=== PATIENT | female | born 1955 | race African-American/Black ===

== ENCOUNTER → 2017-01-07 | Outpatient (CLI) | payer MEDICAID, MEDICARE | LOC: RAD 07:11 | PROVIDERS: ATTEND Family Medicine | DX: R22.1 Localized swelling, mass and lump, neck (principal) | CPT/HCPCS: 76536 ==

== ENCOUNTER 2017-09-24 13:30 | Emergency (ER) | payer MEDICARE, MEDICAID ==
--- NOTE | 2017-09-24 13:48 | ER Document Report ---
ED General - General Chief Complaint: Weakness Stated Complaint: WEAKNESS,FACIAL PAIN,ELEVATED SUGAR Time Seen by Provider: 09/24/17 13:45 Notes: Patient is a 62-year-old female presents emergency department chief complaint of 4 days of high blood sugars at home. Patient states she is on Lantus only as well as Januvia and metformin. Patient states that she denies any fevers or chills, productive cough she admits to intermittent nausea without any pyuria, hematuria. Patient states that she follows with Dr. Sabillon. Otherwise admits to history of high blood pressure. Denies any chest pain. Vomiting, diarrhea, polyuria. She does admit to facial tingling 4 days ago that has gone away. States that she has had this before when her potassium is below. TRAVEL OUTSIDE OF THE [place] IN LAST 30 DAYS: No - Related Data Allergies/Adverse Reactions: amitriptyline [From Elavil] Allergy (Verified 09/24/17 13:34) cephalexin [From Keflex] Allergy (Verified 09/24/17 13:34) ciprofloxacin [From Cipro] Allergy (Verified 09/24/17 13:32) Penicillins Allergy (Verified 09/24/17 13:34) Past Medical History - Social History Smoking Status: Smoker,Current Status Unk Family History: DM, Hyperlipidemia, Hypertension, Malignancy, Thyroid Disfunction, Other - AIDS - Past Medical History Cardiac Medical History: Reports: Hx Hypercholesterolemia, Hx Hypertension Endocrine Medical History: Reports: Hx Diabetes Mellitus Type 2 GI Medical History: Reports: Hx Colonoscopy Musculoskeltal Medical History: Reports Hx Arthritis, Reports Hx Musculoskeletal Deformity, Reports Hx Musculoskeletal Trauma Psychiatric Medical History: Reports: Hx Anxiety, Hx Depression Past Surgical History: Reports: Hx Breast Surgery - breast reduction, Hx Hysterectomy, Hx Nose Surgery, Hx Orthopedic Surgery - foot - Immunizations Hx Diphtheria, Pertussis, Tetanus Vaccination: Yes Hx Pneumococcal Vaccination: 09/07/00 Review of Systems - Review of Systems Constitutional: No symptoms reported EENT: See HPI Cardiovascular: No symptoms reported Respiratory: No symptoms reported Gastrointestinal: No symptoms reported Musculoskeletal: See HPI Neurological/Psychological: No symptoms reported -: Yes All other systems reviewed and negative Physical Exam - Vital signs Vitals: Temp Pulse Resp BP Pulse Ox 98.4 F 89 18 128/79 H 98 09/24/17 13:41 09/24/17 13:41 09/24/17 13:41 09/24/17 13:41 09/24/17 13:41 - Notes Notes: PHYSICAL EXAM GENERAL: Alert, interacts well. HEAD: Normocephalic, atraumatic. EYES: Pupils equal, round, and reactive to light. Extraocular movements intact. ENT: Oral mucosa moist, tongue midline. NECK: Full range of motion. Supple. Trachea midline. LUNGS: Clear to auscultation bilaterally, no wheezes, rales, or rhonchi. No respiratory distress. HEART: Regular rate and rhythm. No murmurs, gallops, or rubs. ABDOMEN: Soft, nondistended, nontender. No guarding, rebound, or rigidity.. Bowel sounds present in all 4 quadrants. EXTREMITIES: Moves all 4 extremities spontaneously. No edema, radial and dorsalis pedis pulses 2/4 bilaterally. No cyanosis. NEUROLOGICAL: Alert and oriented x4. Normal speech. PSYCH: Normal affect, normal mood. SKIN: Warm, dry, normal turgor. No rashes or lesions noted. Course - Re-evaluation Re-evalutation: 09/24/17 17:02 Patient is a 62-year-old female is hemodynamically stable, no acute distress and afebrile. Presentation of asymptomatic hyperglycemia. There is no evidence of HHS or diabetic ketoacidosis on laboratories or based on clinical history. Patient's vitals are within normal limits. They deny any acute focal complaints. Treatment with IV fluids given here in the emergency department with appropriate response of the blood sugar. Patient does have primary care follow-up. Patient was instructed to continue taking their metformin, lantus and januvia and advised they will likely need to increase dietary modification and may also need medication changes. No evidence of CBC with leukocytosis or anemia. Chemistry stable without evidence of acute renal failure, electrolyte abnormalities. Urinalysis does show evidence of urinary tract infection with positive leukoesterase. When discussed with the patient she declines to take an antibiotic at this time and agrees to wait for culture results. Stated that this as well as dehydration could be contributing to her elevated blood sugars. Patient to follow-up with Dr. Romel huynh. Indications to return to emergency department as well as the importance of close outpatient follow-up were discussed at length. Patient verbalized understanding of the need for close follow-up and indications to return to the ED. - Vital Signs Vital signs: Temp Pulse Resp BP Pulse Ox 98.3 F 87 16 125/82 99 09/24/17 17:35 09/24/17 17:35 09/24/17 17:35 09/24/17 17:35 09/24/17 17:35 - Laboratory Result Diagrams: 09/24/17 14:08 09/24/17 14:08 Laboratory results interpreted by me: 09/24/17 09/24/17 09/24/17 13:55 14:08 14:08 Hgb 11.5 L Hct 33.7 L Sodium 135.9 L Glucose 261 H POC Glucose 284 H Calcium 10.3 H Urine Glucose (UA) Ur Leukocyte Esterase 09/24/17 09/24/17 14:25 16:38 Hgb Hct Sodium Glucose POC Glucose 198 H Calcium Urine Glucose (UA) >=500 H Ur Leukocyte Esterase MODERATE H Discharge - Discharge Clinical Impression: Diabetes mellitus Qualifiers: Diabetes mellitus type: type 2 Diabetes mellitus complication status: with hyperglycemia Diabetes mellitus alf insulin use: unspecified alf insulin use status Qualified Code(s): E11.65 - Type 2 diabetes mellitus with hyperglycemia Condition: Good Disposition: HOME, SELF-CARE Instructions: Hyperglycemia (OM) Additional Instructions: You need to followup urgently with your primary care doctor as your blood sugars were high today. You did not have any evidence of a dangerous condition associated with these blood sugars at this time. However, it is very important that you get your blood sugars under control. Please take all of your medications exactly as directed. You should avoid foods that are high in carbohydrates and sugary foods. Losing weight will also help to better control your blood sugars. Please return to emergency department immediately if you develop weakness, persistent vomiting, confusion, or any other symptoms that are concerning to you. Referrals: PARISH SABILLON MD [ACTIVE STAFF] - 09/28/17
[2017-09-24 14:24] LABS: ABSOLUTE BASOPHILS # (AUTO) 0.1 10^3/uL (0.0-0.2); ABSOLUTE EOSINOPHILS # (AUTO) 0.1 10^3/uL (0.0-0.6); ABSOLUTE LYMPHOCYTES (AUTO) 2.5 10^3/uL (0.5-4.7); ABSOLUTE MONOCYTES (AUTO) 0.6 10^3/uL (0.1-1.4); ABSOLUTE NEUT (AUTO) 3.8 10^3/uL (1.7-8.2); BASOPHILS % (AUTO) 1.1 % (0-2); EOSINOPHILS % (AUTO) 1.6 % (0-6); HEMATOCRIT 33.7 % (36.0-47.0); HEMOGLOBIN 11.5 g/dL (12.0-15.5); LYMPHOCYTES % (AUTO) 34.9 % (13-45); MEAN CORPUSCULAR HEMOGLOBIN 30.4 pg (27.0-33.4); MEAN CORPUSCULAR HGB CONC 34.2 g/dL (32.0-36.0); MEAN CORPUSCULAR VOLUME 89 fl (80-97); MONOCYTES % (AUTO) 8.2 % (3-13); PLATELET COUNT 311 10^3/uL (150-450); RED BLOOD COUNT 3.79 10^6/uL (3.72-5.28); SEGMENTED NEUTROPHILS % (AUTO) 54.2 % (42-78); TOTAL CELLS COUNTED % (AUTO) 100 %
[2017-09-24 14:25] LABS: VENOUS BLOOD BASE EXCESS 0.9 mmol/L; VENOUS BLOOD PCO2 43.7 mmHg (35-63); VENOUS BLOOD PH 7.39 (7.30-7.42)
[2017-09-24 14:37] LABS: ALANINE AMINOTRANSFERASE 21 U/L (9-52); ALBUMIN 4.3 g/dL (3.5-5.0); ALKALINE PHOSPHATASE 83 U/L (38-126); ANION GAP 11 (5-19); ASPARTATE AMINO TRANSFERASE 16 U/L (14-36); BILIRUBIN,DIRECT 0.3 mg/dL (0.0-0.4); BILIRUBIN,TOTAL 0.5 mg/dL (0.2-1.3); BLOOD UREA NITROGEN 17 mg/dL (7-20); CALCIUM 10.3 mg/dL (8.4-10.2); CARBON DIOXIDE 25 mmol/L (22-30); CHLORIDE 100 mmol/L (98-107); GLUCOSE 261 mg/dL (75-110); POTASSIUM 4.4 mmol/L (3.6-5.0); SODIUM 135.9 mmol/L (137-145)
[2017-09-24 14:56] LABS: APPEARANCE,URINE CLOUDY; BILIRUBIN,URINE NEGATIVE (NEGATIVE); COLOR,URINE YELLOW; GLUCOSE, URINE >=500 mg/dL (NEGATIVE); KETONES,URINE NEGATIVE (NEGATIVE); LEUKOCYTE ESTERASE,URINE MODERATE (NEGATIVE); NITRITE,URINE NEGATIVE (NEGATIVE); PROTEIN,URINE NEGATIVE (NEGATIVE); URINE SPECIFIC GRAVITY 1.015; UROBILINOGEN,URINE NEGATIVE mg/dL (<2.0)
[2017-09-24] MEDS ORDERED: NORMAL SALINE 1000 ML 1,000 ML IV PRN (15:12)
[2017-09-24 15:15] LABS: MAGNESIUM 1.6 mg/dL (1.6-2.3)
[2017-09-24 17:37] VITALS: BP 125/82
== END 2017-09-24 17:25 | disposition home or self-care (01) ==
LOC: ER 13:30
DX: E11.65 Type 2 diabetes mellitus with hyperglycemia (principal); R53.1 Weakness; R51 Headache; R11.0 Nausea; F17.200 Nicotine dependence, unspecified, uncomplicated
CPT/HCPCS: 99285; 96360; 36415; 87086; 82962; 83735; 85025; 80053; 81001; 82803; J7030

== ENCOUNTER → 2019-01-18 | Outpatient (CLI) | payer MEDICAID, MEDICARE ==
--- NOTE | 2019-01-18 18:56 | XCELERA REPORT ---
[address] [address] Transthoracic Echocardiogram Report Name: BLANKA STEWARD Age: 63 yrs Gender: Female : 1955 Patient Status: Outpatient Patient Location: [facility] Study Date: 01/18/2019 02:26 PM Height: 74 in Weight: 266 lb BSA: 2.5 m2 Reason For Study: MURMUR Ordering Physician: MELI OWUSU Performed By: Napoleon Mills Interpretation Summary Min post perciardial effusion Noormal calcific ao root, not enlarged. Mild sclerotic AV disease, no stenosis, mild AR with no LV enlargement. Mild mitral annular calcification, no MS, no MVP, mild MR with no LA enlargement. LV shows asymmetric LVH with post wall 15 mm and IVS 10mm, with IVS and inferoseptal wall hypokinesis, No LV enlargement. LVEF is 55% and there is stage I LV diastolic dysfunction. RH is normal Trace TR unable to sample to derive RVSP. IVC is sl enlarged. RAP estimated 8mm Hg. MMode/2D Measurements & Calculations RVDd: 3.2 cm LVIDd: 5.6 cm FS: 29.2 % Ao root diam: IVSd: 0.78 cm LVIDs: 4.0 cm EDV(Teich): 2.9 cm LVPWd: 0.76 cm 156.6 ml Ao root area: ESV(Teich): 69.9 ml 6.6 cm2 LA dimension: EF(Teich): 55.4 % 3.3 cm LVLd ap4: 8.7 cm SV(MOD-sp4): EDV(MOD-sp4): 66.0 ml 124.0 ml LVLs ap4: 7.5 cm ESV(MOD-sp4): 58.0 ml EF(MOD-sp4): 53.2 % Doppler Measurements & Calculations MV E max darell: MV P1/2t max darell: Ao V2 max: LV V1 max P.1 cm/sec 80.6 cm/sec 154.7 cm/sec 2.5 mmHg MV A max darell: MV P1/2t: 92.3 msec Ao max PG: LV V1 max: 99.1 cm/sec MVA(P1/2t): 2.4 cm2 9.6 mmHg 79.8 cm/sec MV E/A: 0.73 MV dec slope: 255.6 cm/sec2 MV dec time: 0.26 sec PA V2 max: MV P1/2t-pr_phl: 59.5 cm/sec 92.3 msec PA max P.4 mmHg Left Ventricle The left ventricle is grossly normal size. There is moderate asymmetric left ventricular hypertrophy. IVS 10 mm. PW 15mm. LV EF is 55%. Doppler measurements suggest impaired left ventricular relaxation, which is associated with grade I/IV or mild diastolic dysfunction. There is septal wall moderate hypokinesis. There is no thrombus. Right Ventricle The right ventricle is grossly normal size. Atria The right atrium is normal. The left atrial size is normal. The interatrial septum is intact with no evidence for an atrial septal defect. Mitral Valve There is mild mitral leaflet calcification. The mitral valve is grossly normal. There is no evidence of mitral valve prolapse. There is no mitral valve stenosis. There is a mild amount of mitral regurgitation. Aortic Valve The aortic valve opens well. The aortic valve is trileaflet. The aortic valve is sclerotic and shows some degree of functional abnormality. There is no aortic valvular vegetation. There is no aortic valve stenosis. There is a mild amount of aortic regurgitation. Tricuspid Valve The tricuspid is normal in structure and function. There is no tricuspid valve prolapse. There is no tricuspid stenosis. There is a trace or physiologic amount of tricuspid regurgitation. Pulmonic Valve The pulmonic valve is not well visualized. Great Vessels The aortic root is normal size. Effusions Minimal pericardial effusion. I WMSI = 1.25 % Normal = 75 Segments Size X - Cannot 2 - 4 - 1-2 small Interpret 1 - Normal Hypokinetic 3 - AkineticDyskinetic 3-5 moderate 5 - 6-14 large Aneurysmal 15-16 diffuse : MELI OWUSU > Reginald Lewis
== END ==
LOC: SP 13:48
PROVIDERS: ATTEND Family Medicine
DX: R01.1 Cardiac murmur, unspecified (principal)
CPT/HCPCS: 93306